=== PATIENT | male | born 1995 | race Caucasian/White ===

== ENCOUNTER 2017-01-25 14:03 | Emergency (ER) | payer BC ==
[2017-01-25] MEDS ORDERED: DOXYcycline CAP(*) 100 MG PO ONE (17:01)
--- NOTE | 2017-01-25 17:03 | UC ---
Skin Complaint HPI - HPI Summary HPI Summary: 21 male presents with complaints of a tick bite on left buttock that occurred ~2 -3 days ago and he noticed it yesterday 01/24/17. Patient states he did try and remove it however thinks the head is still intact. Patient admits to some redness, denies and bullseye rash. Minimal pain and tenderness to the area. No joint pains or headache. No fever chills. Never been bit by tick before. 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 however head still intact Associated Signs & Symptoms: Positive: Negative Related History: Insect Bite/Sting - tick - Allergy/Home Medications Allergies/Adverse Reactions: Allergies Allergy/AdvReac Type Severity Reaction Status Date / Time No Known Allergies Allergy Verified 01/25/17 15:29 Home Medications: Home Medications NK [No Home Medications Reported] 01/25/17 [History Confirmed 01/25/17] Review of Systems Constitutional: Negative Skin: Other - tick bite, redness ENT: Negative Respiratory: Negative Cardiovascular: Negative Gastrointestinal: Negative Neurological: Negative All Other Systems Reviewed And Are Negative: Yes PMH/Surg Hx/FS Hx/Imm Hx - Additional Past Medical History Additional PMH: none: denies asthma, htn, dm - Surgical History Surgical History: Yes Surgery Procedure, Year, and Place: WISDOM TEETH EXTRACTION - Family History Known Family History: Positive: None - Social History Alcohol Use: Occasionally Substance Use Type: Marijuana Smoking Status (MU): Never Smoked Tobacco - Immunization History Vaccination Up to Date: Yes Physical Exam Triage Information Reviewed: Yes Appearance: Well-Appearing, No Pain Distress, Well-Nourished Vital Signs: Initial Vital Signs Temp 98.1 F 01/25/17 15:26 Pulse 60 01/25/17 15:26 Resp 16 01/25/17 15:26 BP 109/61 01/25/17 15:26 Pulse Ox 100 01/25/17 15:26 Vital Signs Reviewed: Yes Eyes: Positive: Conjunctiva Clear ENT: Positive: Normal ENT inspection, Hearing grossly normal Neck: Positive: Supple, Nontender, No Lymphadenopathy Respiratory: Positive: Chest non-tender, Lungs clear, Normal breath sounds, No respiratory distress, No accessory muscle use Cardiovascular: Positive: RRR, No Murmur, Pulses Normal, Brisk Capillary Refill Musculoskeletal: Positive: Strength Intact, ROM Intact, No Edema Neurological: Positive: Alert - sensation intact, Muscle Tone Normal Skin: Positive: Other - tick bite with head still intact of left buttock. was removed with 18gauge needels and forceps without complication. no sign of erythema migrans, no concern of lyme disease at this time. minimal surrounding erythema. 3mm in diameter Course/Dx - Course Course Of Treatment: tick head was removed from left buttock without complication. No further signs of infection or lyme disease. Given prophylactic dose of doxycycline due to length of time attached and removed. Educated on lyme disease. Aware of worsening signs and symptoms. Follow up with PCP. - Differential Diagnoses - Skin Complaint Differential Diagnoses: Cellulitis, Contact Dermatitis, Tick Born Illness, Tinea - Diagnoses Provider Diagnoses: tick bite Discharge - Discharge Plan Condition: Stable Disposition: HOME Patient Education Materials: Lyme Disease (ED), Tick Bite (ED), Doxycycline ( By mouth) Referrals: Pema Salazar DO [Primary Care Provider] - Additional Instructions: Watch for signs of bullseye rash, joint pain, headache, fever/chills and if you develop these symptoms seek medical attention promptly. Keep area of bite clean and dry. Doxycycline can make you sensitive of the sun so wear sunscreen and take precautions. Wear bug spray with DEET when outside and wear clothes to cover exposed skin. Follow up with PCP.
== END 2017-01-25 17:15 | disposition home or self-care (01) ==
LOC: UCEAST 14:03
DX: S30.860A Insect bite (nonvenomous) of lower back and pelvis, initial encounter (principal); W57.XXXA Bitten or stung by nonvenomous insect and other nonvenomous arthropods, initial encounter; F12.90 Cannabis use, unspecified, uncomplicated
CPT/HCPCS: 99212; A9270-GY; G0463

== ENCOUNTER 2018-01-28 12:40 | Emergency (ER) | payer SELFPAY ==
--- NOTE | 2018-01-28 13:42 | UC ---
Respiratory Complaint HPI - HPI Summary HPI Summary: 2 weeks of cough and wheeze, thick sputum no nasal drainage - History of Current Complaint Chief Complaint: UCRespiratory Stated Complaint: RESP COMPLAINT Time Seen by Provider: 01/28/18 13:35 Hx Obtained From: Patient Onset/Duration: Sudden Onset, Lasting Weeks - 2, Still Present Timing: Constant Pain Intensity: 0 Pain Scale Used: 0-10 Numeric Character: Cough: Productive Aggravating Factors: Nothing Alleviating Factors: Nothing Associated Signs And Symptoms: Positive: Pleuritic Chest Pain, Wheezing, URI - Allergies/Home Medications Allergies/Adverse Reactions: Allergies Allergy/AdvReac Type Severity Reaction Status Date / Time No Known Allergies Allergy Verified 01/28/18 13:12 PMH/Surg Hx/FS Hx/Imm Hx Previously Healthy: Yes - Surgical History Surgical History: Yes Surgery Procedure, Year, and Place: WISDOM TEETH EXTRACTION - Family History Known Family History: Positive: None - Social History Occupation: Student Lives: With Family Alcohol Use: Rare Substance Use Type: None Smoking Status (MU): Current Some Day Smoker Type: Cigarettes - Immunization History Vaccination Up to Date: Yes Review of Systems Constitutional: Negative Skin: Negative Eyes: Negative ENT: Negative Respiratory: Cough Cardiovascular: Negative Gastrointestinal: Negative Genitourinary: Negative Motor: Negative Neurovascular: Negative Musculoskeletal: Negative Neurological: Negative Psychological: Negative Is Patient Immunocompromised?: No All Other Systems Reviewed And Are Negative: Yes Physical Exam Triage Information Reviewed: Yes Appearance: Well-Appearing, No Pain Distress, Well-Nourished Vital Signs: Initial Vital Signs Temp 97.8 F 01/28/18 13:10 Pulse 59 01/28/18 13:10 Resp 18 01/28/18 13:10 BP 121/45 01/28/18 13:10 Pulse Ox 100 01/28/18 13:10 Vital Signs Reviewed: Yes Eye Exam: Normal Eyes: Positive: Conjunctiva Clear ENT Exam: Normal ENT: Positive: Normal ENT inspection, Hearing grossly normal, Pharynx normal, TMs normal, Uvula midline. Negative: Nasal congestion, Tonsillar swelling, Tonsillar exudate, Trismus, Muffled voice, Hoarse voice, Dental tenderness, Sinus tenderness Dental Exam: Normal Neck exam: Normal Neck: Positive: 1 Respiratory Exam: Normal Respiratory: Positive: Chest non-tender, Lungs clear, No accessory muscle use, Wheezing Cardiovascular Exam: Normal Cardiovascular: Positive: RRR, No Murmur, Pulses Normal, Brisk Capillary Refill Musculoskeletal Exam: Normal Musculoskeletal: Positive: Strength Intact, ROM Intact, No Edema Neurological Exam: Normal Neurological: Positive: Alert, Muscle Tone Normal Psychological Exam: Normal Skin Exam: Normal UC Diagnostic Evaluation - Laboratory O2 Sat by Pulse Oximetry: 100 Respiratory Course/Dx - Course Course Of Treatment: zithromax, albuterol increase fluids follow with pcp prn - Differential Dx/Diagnosis Provider Diagnoses: Acute bronchitis with bronchospasm Discharge - Sign-Out/Discharge Documenting (check all that apply): Discharge/Admit/Transfer - Discharge Plan Condition: Stable Disposition: HOME Prescriptions: Albuterol HFA INHALER* [Ventolin HFA Inhaler*] 2 puff INH Q4H PRN #1 mdi PRN Reason: cough/wheeze Azithromycin TAB* [Zithromax TAB (Z-DESIREE) 250 mg #6 tabs] 2 tab PO .TODAY, THEN 1 DAILY #1 desiree Patient Education Materials: How to Use a Metered-Dose Inhaler (ED), Bronchospasm (ED), Acute Cough (ED) Referrals: Frank Lugo MD [Medical Doctor] - If Needed - Billing Disposition and Condition Condition: STABLE Disposition: HOME
== END 2018-01-28 13:51 | disposition home or self-care (01) ==
LOC: UCEAST 12:40
DX: J20.9 Acute bronchitis, unspecified (principal); Z72.0 Tobacco use
CPT/HCPCS: 99212; G0463